=== PATIENT | male | born 1985 | race African-American/Black ===

== ENCOUNTER 2017-09-14 08:18 | Day surgery (SDC) | payer OTHER ==
[2017-09-10 10:58] LABS: HEMATOCRIT 39.8 % (36-52); HEMOGLOBIN 12.6 g/dL (12.0-18.0); MEAN CORPUSCULAR HEMOGLOBIN 25 pg (27-31); MEAN CORPUSCULAR HGB CONC 32 g/dL (33-37); MEAN CORPUSCULAR VOLUME 78 fL (80-94); PLATELET COUNT (AUTO) 286 K/uL (140-450); RED CELL DISTRIBUTION WIDTH 14.4 % (11.6-13.7); WHITE BLOOD COUNT (AUTO) 5.8 K/uL (4.8-10.8)
[2017-09-10 11:26] LABS: LYMPHOCYTES % (MANUAL) 30 % (20-46); MONOCYTES % (MANUAL) 10 % (5-12)
[2017-09-10 11:40] LABS: ANION GAP 12.8 (8-16); CARBON DIOXIDE 26.3 mmol/L (21-32); CREATININE 0.7 mg/dL (0.7-1.3); POTASSIUM 4.1 mmol/L (3.5-5.1)
[~2017-09-14] VITALS: Ht 172.7 cm; Wt 107.5 kg
[2017-09-14] MEDS ORDERED: FERR325E14 PO (09:49)
[2017-09-14] MEDS ORDERED: VITA1TAB44 PO (09:49)
[2017-09-14] MEDS ORDERED: VITD1000 PO (09:49)
[2017-09-14] MEDS ORDERED: DIVA500T1 PO (09:49)
[2017-09-14] MEDS ORDERED: BUPIVACAINE-MPF 0.25% 30 ML VIAL INJ ONE (10:33)
[2017-09-14] MEDS ORDERED: PROPOFOL 200 MG/20 ML VIAL IV ONE (11:37)
[2017-09-14] MEDS ORDERED: LIDOCAINE 2% 100 MG/5 ML SYR IVP ONE (11:37)
[2017-09-14] MEDS ORDERED: SEVOFLURANE 250 ML BTL INH ONE (11:37)
[2017-09-14] MEDS ORDERED: fentaNYL 0.05 MG/ML VIAL ONE (11:56)
[2017-09-14] MEDS ORDERED: MIDAZOLAM 2 MG/2 ML VIAL ONE (11:56)
[2017-09-14] MEDS ORDERED: ONDANSETRON 4 MG/2 ML VIAL IV PRN (12:30)
[2017-09-14] MEDS ORDERED: MORPHINE SULFATE 2 MG/ML SYR IVP PRN (12:30)
[2017-09-14] MEDS ORDERED: HYDROmorphone PFS 2 MG/ML SYR IVP PRN (12:30)
[2017-09-14] MEDS ORDERED: MORPHINE SULFATE 4 MG/ML SYR IV PRN (12:30)
[2017-09-14] MEDS ORDERED: HYDROcodone/APAP 5/325 MG 1 TAB TAB PO PRN (12:30)
== END 2017-09-14 14:00 | disposition home or self-care (01) ==
LOC: MDS 08:18 → MMU 08:19 → MDS 14:00
PROVIDERS: ATTEND Surgery
DX: L72.3 Sebaceous cyst (principal); J45.909 Unspecified asthma, uncomplicated; F17.210 Nicotine dependence, cigarettes, uncomplicated; E66.9 Obesity, unspecified; I25.119 Atherosclerotic heart disease of native coronary artery with unspecified angina pectoris; I12.9 Hypertensive chronic kidney disease with stage 1 through stage 4 chronic kidney disease, or unspecified chronic kidney disease; E11.22 Type 2 diabetes mellitus with diabetic chronic kidney disease; N18.9 Chronic kidney disease, unspecified; F03.90 Unspecified dementia, unspecified severity, without behavioral disturbance, psychotic disturbance, mood disturbance, and anxiety; I63.9 Cerebral infarction, unspecified; K21.9 Gastro-esophageal reflux disease without esophagitis; D64.9 Anemia, unspecified; G40.909 Epilepsy, unspecified, not intractable, without status epilepticus; Z98.890 Other specified postprocedural states
CPT/HCPCS: 11442; 36415; 71010; 80048; 85025; J0690; J2001; J2250; J2704; J3010; J3490; J7060; J7120

== ENCOUNTER 2023-05-06 10:48 | Emergency (ER) | payer OTHER ==
[~2023-05-06] VITALS: Ht 167.6 cm; Wt 104.3 kg
[~2023-05-06 10:48] MED LIST: CHOL100084 PO; DIVA500T1 PO; FERR325E14 PO; VITA1TAB44 PO
--- NOTE | 2023-05-06 10:48 | NUR ---
PT BIBA TO BED 5
[2023-05-06 10:52] VITALS: BP 119/86; PULSE 110; RESP 18; TEMP 98
--- NOTE | 2023-05-06 11:00 | NUR ---
MD SINGLETARY AT BEDSIDE FOR EVALUATION
[2023-05-06] MEDS ORDERED: LORazepam 2 MG/ML VIAL IVP ONE (11:10)
[2023-05-06] MEDS ORDERED: NACL 0.9% 1,000 ML IV ONE (11:10)
--- NOTE | 2023-05-06 11:10 | NUR ---
37YO MALE PT BIBA LONGTERM C/O HEADACHE S/P SEIZURE. AT ARRIVAL PT AAOX4, SPEAKING IN CLEAR FULL SENTENCES. AMB W/ STEADY GAIT. NO ORAL TRAUMA OR INCONTINENCE NOTED. DENIES CHEST PAIN, SOB OR N/V/D. ON FOOD SERVICE ORDER CLERK. BED AT LOWEST POSITION, BED [id number]. SEIZURE PADS IN PLACE. CALL LIGHT WITHIN REACH HX: EPILEPSY, AUTISM/(MMR) NKA
[2023-05-06 11:24] LABS: BASOPHILS % (AUTO) 0.5 % (0.0-2.0); EOSINOPHILS # (AUTO) 0.1 K/uL (0-0.4); EOSINOPHILS % (AUTO) 1.1 % (0.0-4.0); HEMATOCRIT 41.2 % (36-52); HEMOGLOBIN 13.3 g/dL (12.0-18.0); LYMPHOCYTES # (AUTO) 0.7 K/uL (2.0-11.5); LYMPHOCYTES % (AUTO) 15.2 % (20.5-51.1); MEAN CORPUSCULAR HEMOGLOBIN 26 pg (27-31); MEAN CORPUSCULAR HGB CONC 32 g/dL (33-37); MEAN CORPUSCULAR VOLUME 79.9 fL (80-94); MONOCYTES # (AUTO) 0.4 K/uL (0.8-1.0); MONOCYTES % (AUTO) 8.4 % (1.7-9.3); NEUTROPHILS # (AUTO) 3.5 K/uL (1.8-7.7); NEUTROPHILS % (AUTO) 74.8 % (42.2-75.2); PLATELET COUNT (AUTO) 291 K/uL (140-450); RED BLOOD CELL COUNT(AUTO) 5.16 MIL/uL (4.20-6.10); WHITE BLOOD COUNT (AUTO) 4.7 K/uL (4.8-10.8)
--- NOTE | 2023-05-06 11:24 | NUR ---
pt taken to ct via mikey
[2023-05-06 11:36] LABS: ALBUMIN 3.7 g/dL (3.4-5.0); ANION GAP 13.9 (8-16); CARBON DIOXIDE 26.4 mmol/L (21-32); CREATININE 0.8 mg/dL (0.6-1.3); POTASSIUM 4.3 mmol/L (3.5-5.1); TOTAL BILIRUBIN 0.2 mg/dL (0.0-1.0)
--- NOTE | 2023-05-06 11:40 | NUR ---
pt brought back via mikey
[2023-05-06 12:08] LABS: APPEARANCE,URINE CLEAR (CLEAR); BILIRUBIN,URINE NEGATIVE (NEGATIVE); BLOOD, URINE TRACE-I (NEGATIVE); COLOR,URINE YELLOW (YELLOW); LEUKOCYTE ESTERASE ,URINE NEGATIVE (NEGATIVE); NITRITE, URINE POSITIVE (NEGATIVE); UGLUCOSE NEGATIVE (NEGATIVE)
--- NOTE | 2023-05-06 12:11 | NUR ---
caregiver at bedside
[2023-05-06 12:23] LABS: RBC,URINE 0-5 /HPF (0-5)
[2023-05-06 12:59] VITALS: BP 131/68; PULSE 80; RESP 18; TEMP 98
--- NOTE | 2023-05-06 13:33 | NUR ---
SLEEPING , NO SZ, ACTIVITY
[2023-05-06 13:38] VITALS: O2SAT 98
--- NOTE | 2023-05-06 14:06 | NUR ---
CAREGIVER GINGER CALLED AND NOTIFIED OF PT D/C. ETA 15MIN
--- NOTE | 2023-05-06 14:20 | NUR ---
IV removed, catheter intact and site benign. Applied folded 4x4 gauze and tape to stop bleeding.
--- NOTE | 2023-05-06 14:25 | NUR ---
Patient discharged with v/s stable. Written and verbal after care instructions FOR SEIZURE given and explained. Patient verbalized understanding. Ambulatory with by caregiver. All questions addressed prior to discharge. Advised to follow up with PMD.
--- NOTE | 2023-05-06 14:25 | NUR ---
The patient's care was reviewed and supervised by Harsha Storm RN.
== END 2023-05-06 14:25 | disposition home or self-care (01) ==
LOC: MED 10:48
DX: R56.9 Unspecified convulsions (principal); Z98.890 Other specified postprocedural states; Z79.899 Other long term (current) drug therapy
CPT/HCPCS: 36415; 70450; 80053; 81001; 85025; 87086; 96361; 96374; 99285; J2060; J7030

== ENCOUNTER 2024-02-22 10:09 | Emergency (ER) | payer OTHER ==
[~2024-02-22] VITALS: Ht 180.3 cm; Wt 99.8 kg
[2024-02-22 10:12] VITALS: BP 137/88; PULSE 112; RESP 20; TEMP 98.1; O2SAT 97
[2024-02-22 12:13] LABS: BASOPHILS % (AUTO) 0.2 % (0.0-2.0); EOSINOPHILS % (AUTO) 0.4 % (0.0-4.0); HEMATOCRIT 40.7 % (36-52); HEMOGLOBIN 13.5 g/dL (12.0-18.0); LYMPHOCYTES # (AUTO) 0.8 K/uL (2.0-11.5); LYMPHOCYTES % (AUTO) 11.1 % (20.5-51.1); MEAN CORPUSCULAR HEMOGLOBIN 27 pg (27-31); MEAN CORPUSCULAR HGB CONC 33 g/dL (33-37); MEAN CORPUSCULAR VOLUME 79.8 fL (80-94); MONOCYTES # (AUTO) 0.6 K/uL (0.8-1.0); MONOCYTES % (AUTO) 7.3 % (1.7-9.3); NEUTROPHILS # (AUTO) 6.1 K/uL (1.8-7.7); PLATELET COUNT (AUTO) 282 K/uL (140-450); RED CELL DISTRIBUTION WIDTH 14.9 % (11.6-13.7); WHITE BLOOD COUNT (AUTO) 7.6 K/uL (4.8-10.8)
[2024-02-22 12:26] LABS: APPEARANCE,URINE CLEAR (CLEAR); BILIRUBIN,URINE NEGATIVE (NEGATIVE); BLOOD, URINE TRACE-I (NEGATIVE); COLOR,URINE YELLOW (YELLOW); LEUKOCYTE ESTERASE ,URINE NEGATIVE (NEGATIVE); NITRITE, URINE NEGATIVE (NEGATIVE); PROTEIN,URINE NEGATIVE (NEGATIVE); UGLUCOSE NEGATIVE (NEGATIVE); UROBILINOGEN,URINE 0.2 EU/dL (0.2 - 1)
[2024-02-22 12:30] LABS: ANION GAP 12.5 (8-16); CALCIUM 9.5 mg/dL (8.5-10.1); CARBON DIOXIDE 28.5 mmol/L (21-32); CREATININE 0.8 mg/dL (0.6-1.3)
[2024-02-22 12:38] LABS: RBC,URINE 0-5 /HPF (0-5); WBC,URINE 0-5 /HPF (0-5)
[2024-02-22 12:39] LABS: BACTERIA,URINE None Seen /HPF (None Seen); SQUAMOUS EPITHELIAL CELL,UR 0-3 (FEW) /LPF (0-3 (FEW))
[2024-02-22] MEDS: LORazepam 1 MG TAB PO ONE (12:43)
[2024-02-22 13:28] VITALS: BP 129/80; PULSE 90; RESP 17; TEMP 98; O2SAT 98
== END 2024-02-22 13:55 | disposition home or self-care (01) ==
LOC: MED 10:09
DX: R56.9 Unspecified convulsions (principal); R11.0 Nausea; R51.9 Headache, unspecified; Z79.899 Other long term (current) drug therapy
CPT/HCPCS: 36415; 70450; 80048; 81001; 85025; 99284